=== PATIENT | female | born 1950 | race Caucasian/White ===

== ENCOUNTER 2018-04-26 14:01 | Day surgery (SDC) | payer MEDICARE, OTHER ==
[~2018-04-26] VITALS: Ht 152.4 cm; Wt 52.6 kg
[2018-04-26] MEDS ORDERED: ETOD400 (14:42)
[2018-04-26] MEDS ORDERED: VENL37.5ER (14:42)
[2018-04-26] MEDS ORDERED: ESTRADIOL1 MG (14:45)
[2018-04-26] MEDS ORDERED: LOSA25 (14:45)
[2018-04-26] MEDS ORDERED: DOXE25 (14:45)
[2018-04-26] MEDS ORDERED: [UNRECOGNIZED DRUG - OTHER] (14:45)
[2018-04-26] MEDS ORDERED: CHOL10002 (14:45)
[2018-04-26] MEDS ORDERED: METCAR500 (14:45)
== END 2018-04-26 15:48 | disposition home or self-care (01) ==
LOC: ORSCSDS 14:01
PROVIDERS: Ophthalmology
PROC: 08BN0ZZ Excision of Right Upper Eyelid, Open Approach (ICD-10-PCS; principal; 2018-04-26 15:30)
PROC: 08BP0ZZ Excision of Left Upper Eyelid, Open Approach (ICD-10-PCS; principal; 2018-04-26 15:30)
DX: H02.423 Myogenic ptosis of bilateral eyelids (principal); I10 Essential (primary) hypertension; J44.9 Chronic obstructive pulmonary disease, unspecified; F17.210 Nicotine dependence, cigarettes, uncomplicated; Z79.899 Other long term (current) drug therapy
CPT/HCPCS: J2250; J3010; J7040

== ENCOUNTER 2018-12-19 07:53 | Day surgery (SDC) | payer MEDICARE, OTHER ==
[~2018-12-19] VITALS: Ht 152.4 cm; Wt 54.0 kg
[~2018-12-19 07:53] MED LIST: B-COMPLEX WITH1 EAC1 PO; CALCIUM 500 +1 EAC2; CHOL10002; DOXE25; DOXE25 PO; ESTRADIOL1 MG; ETOD400; ETOD400CR PO; Estradiol1 MG PO; Ferrous Sulfat325 M2 PO; LOSA25; LOSA25 PO; METCAR500; METCAR500 PO; VENL37.5 PO; VENL37.5ER; VITAMIN D22000 UNIT PO; Voltaren100 GM TOP; [UNRECOGNIZED DRUG - OTHER]
== END 2018-12-19 10:03 | disposition home or self-care (01) ==
LOC: ORSCSDS 07:53
PROVIDERS: Surgery
PROC: 0DJD8ZZ Inspection of Lower Intestinal Tract, Via Natural or Artificial Opening Endoscopic (ICD-10-PCS; principal; 2018-12-19 09:15)
DX: Z12.11 Encounter for screening for malignant neoplasm of colon (principal); D64.9 Anemia, unspecified; K21.9 Gastro-esophageal reflux disease without esophagitis; I10 Essential (primary) hypertension; F41.8 Other specified anxiety disorders; Z86.010 Personal history of colon polyps; Z79.899 Other long term (current) drug therapy
CPT/HCPCS: J7120

== ENCOUNTER → 2021-07-02 | Outpatient (CLI) | payer MEDICARE, OTHER ==
[2021-07-02 10:43] LABS: U Amphetamine Screen Not Detected; U Barbituate Screen Not Detected; U Benzodiazapine Screen Not Detected; U Cocaine Screen Not Detected; U Methadone Screen Not Detected; U Methamphetamine Screen Not Detected; U Opiates Screen DETECTED
[2021-07-02 10:44] LABS: U Buprenorphine Screen Not Detected; U Cannabinoids Screen Not Detected; U Oxycodone Screen DETECTED; U Phencyclidine Screen Not Detected; U Propoxyphene Screen Not Detected
== END | disposition home or self-care (01) ==
LOC: LAB SHORT 09:11 → LAB 09:11
PROVIDERS: Neurological Surgery
DX: Z51.81 Encounter for therapeutic drug level monitoring (principal); Z79.891 Long term (current) use of opiate analgesic